=== PATIENT | female | born 1975 | race African-American/Black ===

== ENCOUNTER 2016-11-06 09:19 | Day surgery (SDC) | payer MEDICAID ==
[~2016-11-06 09:19] MED LIST: DIPHENHYDRAMINE HCL 50 MG/ML VIAL ONE; EPINEPHRINE INJ 1 MG/10 ML DISP.SYRIN ONE; FLUMAZENIL INJ 0.5 MG/5 ML VIAL IV ONE; GLUCAGON,HUMAN RECOMB 1 MG INJ ONE; NALOXONE HCL INJ/PF 0.4 MG/1 ML SDV ONE; ONDANSETRON HCL INJ/PF 4 MG/2 ML SDV ONE; PROMETHAZINE HCL INJ 25 MG/1 ML VIAL ONE
[2016-11-06] MEDS: MIDAZOLAM 2 MG/2 ML INJ ONE ×2 (10:16→10:20)
[2016-11-06] MEDS: FENTANYL CITRATE INJ/PF 100 MCG/2 ML AMPUL ONE ×2 (10:18→10:23)
--- NOTE | 2016-11-06 10:29 | Operative Report ---
Operative Report DATE OF SURGERY: 11/06/16 Operative Report: The risks benefits and alternatives of the procedure explained to the patient in detail and informed consent is obtained that GIF Olympus video scope was inserted into the patient's mouth and hypopharynx the esophagus is identified intubated and insufflated the scope was then advanced through the esophagus stomach and duodenum retroflexion maneuver is done the esophagus stomach and first and second portions of the duodenum examined PREOPERATIVE DIAGNOSIS: Nausea and vomiting POSTOPERATIVE DIAGNOSIS: Duodenal ulceration. Gastritis. Hiatal hernia. Gastric mucosal specimens obtained to rule out for Helicobacter pylori OPERATION: EGD with biopsy SURGEON: PETRONA CHARLES ANESTHESIA: Moderate Sedation - 4 mg of Versed, 125 g of fentanyl. Conscious sedation monitoring time 30 minutes. TISSUE REMOVED OR ALTERED: As noted above. COMPLICATIONS: None. ESTIMATED BLOOD LOSS: none. INTRAOPERATIVE FINDINGS: Duodenal ulcers shallow no bleeding noted. Gastritis status post biopsy. Hiatal hernia. Esophagus normal PROCEDURE: Patient tolerated procedure well. No immediate postprocedure complications are noted. Patient is discharged in good condition. Discharge date 11/06/2016. Discharge diet: Regular. Discharge activity: Regular. 2-3 week follow-up to discuss findings. Patient is instructed to call the office or proceed to the emergency room should there be any further problems or questions. We'll await on biopsies.
[2016-11-06 11:41] VITALS: BP 113/78
== END 2016-11-06 11:40 | disposition home or self-care (01) ==
LOC: END 09:19
PROVIDERS: ATTEND Internal Medicine Gastroenterology
PROC: 0DB68ZX Excision of Stomach, Via Natural or Artificial Opening Endoscopic, Diagnostic (ICD-10-PCS; principal; 2016-11-06 10:00)
DX: K44.9 Diaphragmatic hernia without obstruction or gangrene (principal); K26.9 Duodenal ulcer, unspecified as acute or chronic, without hemorrhage or perforation; K31.9 Disease of stomach and duodenum, unspecified; Z79.899 Other long term (current) drug therapy; Z79.51 Long term (current) use of inhaled steroids; Z88.8 Allergy status to other drugs, medicaments and biological substances; Z88.0 Allergy status to penicillin
CPT/HCPCS: 43239; 88342 ×2; 88305 ×2; J2250; J3010; J2405; J0171; J1200; J1610; J2310; J2550; J3490

== ENCOUNTER → 2016-11-12 | Outpatient (CLI) | payer MEDICAID | LOC: WI 14:26 | PROVIDERS: ATTEND Physician Assistant | DX: Z12.31 Encounter for screening mammogram for malignant neoplasm of breast (principal) | CPT/HCPCS: 77067; G0202 ==

== ENCOUNTER → 2016-11-27 | Outpatient (CLI) | payer MEDICAID | LOC: RAD 07:32 | PROVIDERS: ATTEND Physician Assistant | DX: R94.5 Abnormal results of liver function studies (principal) | CPT/HCPCS: 76705 ==

== ENCOUNTER 2016-12-02 08:34 | Day surgery (SDC) | payer MEDICAID ==
[~2016-12-02 08:34] MED LIST changes: -DIPHENHYDRAMINE HCL 50 MG/ML VIAL ONE; -EPINEPHRINE INJ 1 MG/10 ML DISP.SYRIN ONE; -FLUMAZENIL INJ 0.5 MG/5 ML VIAL IV ONE; -GLUCAGON,HUMAN RECOMB 1 MG INJ ONE; -NALOXONE HCL INJ/PF 0.4 MG/1 ML SDV ONE; -ONDANSETRON HCL INJ/PF 4 MG/2 ML SDV ONE; -PROMETHAZINE HCL INJ 25 MG/1 ML VIAL ONE; +PROPOFOL INJ 200 MG/20 ML VIAL IV ONE
[2016-12-02 10:10] VITALS: BP 130/87
--- NOTE | 2016-12-02 11:35 | Operative Report ---
Operative Report DATE OF SURGERY: 12/02/16 Operative Report: The risks, benefits and alternatives of the procedure including risks of bleeding, perforation requiring surgery are explained to the patient detail and informed consent is obtained. Patient is placed in a left, lateral decubital position. Timeout is called. Propofol medications administered. A rectal examination is done which did not reveal any masses, tears or fissures. An Olympus video scope was inserted into the patient's rectum. The scope was then gradually advanced all the way to the cecum. The cecum was identified by the usual anatomical landmarks including the ileocecal valve as well as the appendiceal office. Photodocumentation is obtained. The scope was then sequentially pulled back creative rest segments of the colon including the ascending colon, hepatic flexure, transverse colon, splenic flexure, descending colon and finally into the rectosigmoid portions of the colon. Retroflexion maneuvers performed. PREOPERATIVE DIAGNOSIS: Abdominal pain, change of bowel habits. POSTOPERATIVE DIAGNOSIS: Right-sided mucosal specimens obtained. Internal hemorrhoids. No AVMs, diverticulosis noted OPERATION: Colonoscopy with biopsy SURGEON: PETRONA CHARLES ANESTHESIA: LMAC TISSUE REMOVED OR ALTERED: Right-sided mucosal specimens obtained rule out lymphocytic, microscopic, collagenous colitis. COMPLICATIONS: None. ESTIMATED BLOOD LOSS: none. INTRAOPERATIVE FINDINGS: As noted above. PROCEDURE: Patient tolerated the procedure well. No immediate postprocedure complications are noted. Patient is discharged in good condition. Discharge date 12/02/2016. Discharge diet: Regular. Discharge activity: Regular. 2-3 week follow-up to discuss findings. We'll await on biopsies. Patient is instructed to call the office or proceed to the emergency room should there be any further problems or questions.
== END 2016-12-02 10:00 | disposition home or self-care (01) ==
LOC: END 08:34
PROVIDERS: ATTEND Internal Medicine Gastroenterology
PROC: 0DBF8ZX Excision of Right Large Intestine, Via Natural or Artificial Opening Endoscopic, Diagnostic (ICD-10-PCS; principal; 2016-12-02 12:00)
DX: R10.30 Lower abdominal pain, unspecified (principal); R19.4 Change in bowel habit; K64.8 Other hemorrhoids; I10 Essential (primary) hypertension; J45.909 Unspecified asthma, uncomplicated; E66.9 Obesity, unspecified; Z79.51 Long term (current) use of inhaled steroids; Z79.899 Other long term (current) drug therapy; Z88.0 Allergy status to penicillin; Z88.8 Allergy status to other drugs, medicaments and biological substances; Z68.41 Body mass index [BMI] 40.0-44.9, adult; Z87.891 Personal history of nicotine dependence
CPT/HCPCS: 45380; 88305 ×2; J2704; 810

== ENCOUNTER 2017-05-15 08:21 | Emergency (ER) | payer MEDICAID ==
[2017-05-15 08:30] VITALS: BP 134/93
[2017-05-15] MEDS ORDERED: METHOCARBAMOL 500 MG TABLET PO ONE (08:56)
[2017-05-15] MEDS ORDERED: HYDROCODONE/ACETAMINOPHEN 5-325 MG 6 TAB/DSPK PO PRN (08:56)
--- NOTE | 2017-05-15 08:58 | ER Document Report ---
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 Pt states that she had no pain during, but right after started to have left lower back pain that does not radiate anywhere else. Patient states that she has had muscle spasms in her back before and that is what it feels like. She states that she went home and took some of her Flexeril that she has but it did not help at all. She admits to using warm packs that are not helping. She denies any numbness or tingling, loss of bladder or bowel function or pain radiating down her legs. TRAVEL OUTSIDE OF THE [place] IN LAST 30 DAYS: No - Related Data Allergies/Adverse Reactions: lisinopril [Lisinopril] Allergy (Verified 05/15/17 08:31) Lips swelled Past Medical History - General Information source: Patient - Social History Smoking Status: Unknown if Ever Smoked Family History: Reviewed & Not Pertinent - Past Medical History Cardiac Medical History: Reports: Hx Hypertension Denies: Hx Coronary Artery Disease, Hx Heart Attack Pulmonary Medical History: Reports: Hx Asthma Denies: Hx Bronchitis, Hx COPD, Hx Pneumonia Neurological Medical History: Reports: Hx Migraine. Denies: Hx Cerebrovascular Accident, Hx Seizures Renal/ Medical History: Denies: Hx Peritoneal Dialysis Musculoskeltal Medical History: Denies Hx Arthritis Psychiatric Medical History: Reports: Hx Anxiety Past Surgical History: Reports: Hx Section. Denies: Hx Hysterectomy - Immunizations Immunizations up to date: Yes Hx Diphtheria, Pertussis, Tetanus Vaccination: Yes Review of Systems - Review of Systems Constitutional: No symptoms reported EENT: No symptoms reported Cardiovascular: No symptoms reported Respiratory: No symptoms reported Gastrointestinal: No symptoms reported Genitourinary: No symptoms reported Female Genitourinary: No symptoms reported Musculoskeletal: See HPI Skin: No symptoms reported Hematologic/Lymphatic: No symptoms reported Neurological/Psychological: No symptoms reported Physical Exam - Vital signs Vitals: Temp Pulse BP Pulse Ox 98.2 F 92 134/93 H 99 05/15/17 08:25 05/15/17 08:25 05/15/17 08:25 05/15/17 08:25 - Notes Notes: PHYSICAL EXAMINATION: GENERAL: Uncomfortable appearing, but in no acute distress. HEAD: Atraumatic, normocephalic. EYES: Pupils equal round and reactive to light, extraocular movements intact, sclera anicteric, conjunctiva are normal. NECK: Normal range of motion, supple without lymphadenopathy LUNGS: CTAB and equal. No wheezes rales or rhonchi. HEART: Regular rate and rhythm without murmurs ABDOMEN: Soft, no tenderness. No guarding, no rebound BACK: left lumbar tender ness, no vertebral tenderness, normal ROM GI/: no CVA tenderness EXTREMITIES: Normal range of motion, no pitting edema. No cyanosis. NEUROLOGICAL: Cranial nerves grossly intact. Normal sensory/motor exams. PSYCH: Normal mood, normal affect. SKIN: Warm, Dry, normal turgor, no rashes or lesions noted Course - Re-evaluation Re-evalutation: 05/15/17 11:23 Patient is nontender midline, I do not see the reason for x-rays today. Patient was given pain medication and muscle relaxer here and a muscle relaxer prescription other than Flexeril. - Vital Signs Vital signs: Temp Pulse Resp BP Pulse Ox 98.2 F 92 134/93 H 99 05/15/17 08:25 05/15/17 08:25 05/15/17 08:25 05/15/17 08:25 Discharge - Discharge Clinical Impression: Spasm of back muscles Condition: Stable Disposition: HOME, SELF-CARE Instructions: Warm Packs ([facility]) Additional Instructions: Return immediately for any new or worsening symptoms. Follow up with primary care provider, call tomorrow to make followup appointment. Prescriptions: Methocarbamol [Robaxin 500 mg Tablet] 1,000 mg PO BID PRN #40 tablet PRN Reason: Forms: Return to Work Referrals: ROSALVA GAFFNEY MD [Primary Care Provider] - Follow up as needed
== END 2017-05-15 09:25 | disposition home or self-care (01) ==
LOC: ER 08:21
DX: M62.830 Muscle spasm of back (principal); I10 Essential (primary) hypertension
CPT/HCPCS: 99283; J3490

== ENCOUNTER 2017-05-22 11:00 | Emergency (ER) | payer SELFPAY ==
[2017-05-22] MEDS ORDERED: ACETAMINOPHEN 325 MG TABLET PO ONE (12:01)
[2017-05-22] MEDS ORDERED: LIDOCAINE 5% (700 MG) TRANSDERMAL ADH..PATCH TP ONE (12:01)
--- NOTE | 2017-05-22 12:07 | ER Document Report ---
ED Neck/Back Problem - General Chief Complaint: Back Pain Stated Complaint: BACK PAIN Time Seen by Provider: 05/22/17 11:48 Mode of Arrival: Ambulatory Information source: Patient Notes: 41-year-old female presents to ED for complaint of muscle spasm to her left back since . She states she was seen here for the same but is not getting any better. Stated it started yesterday morning and she went to work and it got worse. 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 She states she is on Flexeril for the pain she is not able to take ibuprofen due to her blood pressure. TRAVEL OUTSIDE OF THE [place] IN LAST 30 DAYS: No - HPI Patient complains to provider of: Lower back Onset: Last week Onset: Chronic Timing: Still present Quality of pain: Sharp Severity: Moderate Pain Level: 3 Context: Bending Recent injury: No Associated symptoms: Like prior neck/back pain, Lower back pain. denies: Constipation, Fever, Incontinence, Motor loss, Numbness/tingling, Radiation to leg, Sensory loss, Sweaty, Unable to urinate Relieved by: Nothing Similar symptoms previously: Yes Recently seen / treated by doctor: Yes - Related Data Allergies/Adverse Reactions: lisinopril [Lisinopril] Allergy (Verified 05/22/17 11:03) Lips swelled Past Medical History - General Information source: Patient - Social History Smoking Status: Former Smoker Cigarette use (# per day): No Chew tobacco use (# tins/day): No Smoking Education Provided: No Frequency of alcohol use: None Drug Abuse: None Lives with: Family Family History: Reviewed & Not Pertinent Patient has suicidal ideation: No Patient has homicidal ideation: No - Past Medical History Cardiac Medical History: Reports: Hx Hypertension Pulmonary Medical History: Reports: Hx Asthma EENT Medical History: Reports: None Neurological Medical History: Reports: Hx Migraine Endocrine Medical History: Reports: None Renal/ Medical History: Reports: None Malignancy Medical History: Reports: None GI Medical History: Reports: None Musculoskeltal Medical History: Reports None Skin Medical History: Reports None Psychiatric Medical History: Reports: Hx Anxiety Traumatic Medical History: Reports: None Infectious Medical History: Reports: None Past Surgical History: Reports: Hx Section - Immunizations Immunizations up to date: Yes Hx Diphtheria, Pertussis, Tetanus Vaccination: Yes Review of Systems - Review of Systems Constitutional: No symptoms reported EENT: No symptoms reported Cardiovascular: No symptoms reported Respiratory: No symptoms reported Gastrointestinal: No symptoms reported Genitourinary: No symptoms reported Female Genitourinary: No symptoms reported Musculoskeletal: Back pain, Muscle pain, Muscle stiffness Skin: No symptoms reported Hematologic/Lymphatic: No symptoms reported Neurological/Psychological: No symptoms reported -: Yes All other systems reviewed and negative Physical Exam - Vital signs Vitals: Temp Pulse Resp BP Pulse Ox 98.6 F 85 14 141/99 H 100 05/22/17 11:04 05/22/17 11:04 05/22/17 11:04 05/22/17 11:04 05/22/17 11:04 Interpretation: Normal - General General appearance: Appears well, Alert - HEENT Head: Normocephalic, Atraumatic Eyes: Normal Pupils: PERRL - Respiratory Respiratory status: No respiratory distress Chest status: Nontender Breath sounds: Normal Chest palpation: Normal - Cardiovascular Rhythm: Regular Heart sounds: Normal auscultation Murmur: No - Abdominal Inspection: Normal Distension: No distension Bowel sounds: Normal Tenderness: Nontender Organomegaly: No organomegaly - Back Back: Normal, Tender - Extremities General upper extremity: Normal inspection, Nontender, Normal color, Normal ROM , Normal temperature General lower extremity: Normal inspection, Nontender, Normal color, Normal ROM , Normal temperature, Normal weight bearing. 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 She was also sent home with a prescription for Flexeril. Patient instructed on use of ice packs warm packs and exercises to decrease her back pain. Patient did not have any signs or symptoms of cauda equina, saddle anesthesia, any loss of control of bowel bladder, or loss of muscle control. - Vital Signs Vital signs: Temp Pulse Resp BP Pulse Ox 98.6 F 74 14 130/88 H 100 05/22/17 11:04 05/22/17 13:12 05/22/17 11:04 05/22/17 13:12 05/22/17 13:12 - Laboratory Laboratory results interpreted by me: 05/22/17 12:05 Urine Blood SMALL H Discharge - Discharge Clinical Impression: Low back pain Qualifiers: Chronicity: chronic Back pain laterality: left Sciatica presence: without sciatica Qualified Code(s): M54.5 - Low back pain Condition: Stable Disposition: HOME, SELF-CARE Instructions: Family Physicians / Practices Additional Instructions: LOW BACK PAIN: Three out of every four people will have an episode of disabling back pain during their lifetime. Most commonly the pain is due to straining of the muscles and ligaments in the low back. Usual treatment includes: (1) Rest on a firm surface. Avoid lying on your stomach. (2) Ice pack the painful area. After a few days, gentle heat may be used intermittently to relax the area, or ice packs can be continued. (3) Medication may be needed -- muscle relaxers and antiinflammatory medicines are commonly used. (4) As the back improves, exercises are prescribed to strengthen the back and abdominal muscles. Your doctor will advise you on the proper care for your back at each stage in your recovery. You may be better in a few days -- or healing may take several weeks. If new symptoms of a "herniated disc" (radiation of pain, numbness, or tingling down the back of the leg or weakness in the leg) occur, you should be re-examined. Further testing may be necessary. MUSCLE RELAXERS: Muscle relaxing medications are usually prescribed for acute muscle spasm or injury to the neck and back. They are often combined with antiinflammatory pain medication for increased relief. You may stop the muscle relaxer when the pain and stiffness have improved. Start the medication again if spasms recur. Muscle relaxers may cause drowsiness, especially with the first dose. Do not operate machinery or drive while under the effects of the medication. Most muscle relaxers last up to 24 hours. Do not combine the medication with alcohol. ICE PACKS: Apply ice packs frequently against the painful area. Many different schedules are recommended, such as "20 minutes on, 20 minutes off" or "one hour ice, two hours rest." If you need to work, you may need to go longer between ice treatments. You should plan to have the area ice packed AT LEAST one fourth of the time. The ice should be applied over the wrap, tape, or splint, or over a layer of cloth -- not directly against the skin. Some ice bags have a built-in cloth and can be put directly on the skin. WARM PACKS: After approximately two days, apply gentle heat (such as a heating pad or hot water bottle) for about 20 to 30 minutes about every two hours -- at least four times daily. Warmth and elevation will help you make a more rapid recovery , and will ease the pain considerably. Do not use HOT heat, and never apply heat for longer than 30 minutes. The continuous heat can invisibly damage skin and muscles -- even when no burn is seen on the surface. Damaged muscles can make you MORE sore. Stretching Exercises for the Back The physician has recommended that you begin stretching exercises for your back. These are often used even while the back is painful. However, you should notify the physician if the activities seem to increase your pain. PELVIC TILT: Lie flat on your back with knees bent. Tighten your stomach and buttock muscles so it flattens your lower back against the floor. Hold 10 seconds. Repeat 10 times, twice daily. KNEE RAISE: Lying on the back with knees bent, raise one knee to your chest, then the other. Hold both knees against the chest 10 seconds, then lower one knee at a time. Repeat 10 times, twice daily. PARTIAL TRUNK RAISE: Lie face down, arms at your sides. Keeping your waist on the floor, use your arms raise your chest up. Support yourself on your elbows for 30 seconds. Repeat twice daily, increasing the time to two minutes as you recover. Lidocaine will help topically and you can get this and Aspercreme over-the- counter. Also try stretching exercises for your back and for your body. Try walking slowly increased from a half a mile 3 times a week to up to a couple miles 3 or 4 times a week. FOLLOW-UP CARE: If you have been referred to a physician for follow-up care, call the physician s office for an appointment as you were instructed or within the next two days. If you experience worsening or a significant change in your symptoms, notify the physician immediately or return to the Emergency Department at any time for re-evaluation. Prescriptions: Cyclobenzaprine HCl [Flexeril 10 mg Tablet] 10 mg PO TIDP PRN #15 tab PRN Reason: Forms: Elevated Blood Pressure, Return to Work Referrals: ROSALVA GAFFNEY MD [Primary Care Provider] - Follow up as needed
[2017-05-22 12:28] LABS: APPEARANCE,URINE CLEAR; BILIRUBIN,URINE NEGATIVE (NEGATIVE); GLUCOSE, URINE NEGATIVE (NEGATIVE); KETONES,URINE NEGATIVE (NEGATIVE); LEUKOCYTE ESTERASE,URINE NEGATIVE (NEGATIVE); NITRITE,URINE NEGATIVE (NEGATIVE); PROTEIN,URINE NEGATIVE (NEGATIVE); URINE SPECIFIC GRAVITY 1.009; UROBILINOGEN,URINE NEGATIVE mg/dL (<2.0)
[2017-05-22 13:14] VITALS: BP 130/88
== END 2017-05-22 13:14 | disposition home or self-care (01) ==
LOC: ER 11:00
DX: G89.29 Other chronic pain (principal); M54.5 Low back pain; M62.830 Muscle spasm of back; I10 Essential (primary) hypertension; J45.909 Unspecified asthma, uncomplicated; Z79.899 Other long term (current) drug therapy; Z87.891 Personal history of nicotine dependence
CPT/HCPCS: 81001; 81025; 87086; 99283

== ENCOUNTER → 2017-07-14 | Outpatient (CLI) | payer OTHER ==
--- NOTE | 2017-07-14 09:06 | WOMENS IMAGING REPORT ---
EXAM DESCRIPTION: U/S ABDOMEN LIMITED COMPLETED DATE/TIME: 07/14/2017 7:35 am REASON FOR STUDY: RIGHT UPPER QUADRANT PAIN R10.11 RIGHT UPPER QUADRANT PAIN COMPARISON: 11/27/2016. TECHNIQUE: Dynamic and static grayscale images acquired of the abdomen and recorded on PACS. Isabelo tiffanie selected color Doppler and spectral images recorded. LIMITATIONS: None. FINDINGS: PANCREAS: No masses. Visualized pancreatic duct normal caliber. LIVER: No masses. Echotexture normal. LIVER VASCULATURE: Normal directional flow of the main portal vein and hepatic veins. GALLBLADDER: No stones. Normal wall thickness. No pericholecystic fluid. ULTRASOUND-DETECTED VALENCIA'S SIGN: Negative. INTRAHEPATIC DUCTS AND COMMON DUCT: CBD and intrahepatic ducts normal caliber. No filling defects. INFERIOR VENA CAVA: Normal flow. AORTA: No aneurysm. RIGHT KIDNEY:Normal size. Normal echogenicity. No solid or suspicious masses. No hydronephrosis. No c alcifications. LEFT KIDNEY: Normal size. Normal echogenicity. No solid or suspicious masses. No hydronephrosis. No calcifications. SPLEEN: Normal size. No solid masses. PERITONEAL AND PLEURAL SPACES: No ascites or effusions. OTHER: No other significant finding. IMPRESSION: NORMAL ABDOMINAL ULTRASOUND. TECHNICAL DOCUMENTATION: JOB ID: [id number] [employer]- All Rights Reserved
== END ==
LOC: WI 07:06
PROVIDERS: ATTEND Physician Assistant
DX: R10.11 Right upper quadrant pain (principal)
CPT/HCPCS: 76705

== ENCOUNTER 2017-07-16 08:58 | Emergency (ER) | payer OTHER ==
--- NOTE | 2017-07-16 09:25 | ER Document Report ---
ED Medical Screen (RME) - General Chief Complaint: Abdominal Pain Stated Complaint: ABDOMINAL PAIN Time Seen by Provider: 07/16/17 09:19 Notes: This 41-year-old female patient comes emergency room complaining of right upper quadrant pain has been going on for several days. She had a normal gallbladder ultrasound done 2 days ago on 07/14/2017. She has an IUD therefore does not have periods. She has had endoscopy and colonoscopy with no findings in late October and mid November 2016. She did have a negative gallbladder ultrasound in November 2016. She reportedly had elevated liver enzymes at that time which she was told had return to normal a few days ago. The pain happens at any time of day or evening. Pain is not related to eating. I have greeted and performed a rapid initial assessment of this patient. A comprehensive ED assessment and evaluation of the patient, analysis of test results and completion of the medical decision making process will be conducted by additional ED providers. TRAVEL OUTSIDE OF THE [place] IN LAST 30 DAYS: No - Related Data Allergies/Adverse Reactions: lisinopril [Lisinopril] Allergy (Verified 07/16/17 09:02) Lips swelled Past Medical History - Social History Chew tobacco use (# tins/day): No Frequency of alcohol use: None Drug Abuse: None - Past Medical History Cardiac Medical History: Reports: Hx Hypertension Denies: Hx Heart Attack Pulmonary Medical History: Reports: Hx Asthma Denies: Hx Bronchitis, Hx COPD, Hx Pneumonia Neurological Medical History: Reports: Hx Migraine. Denies: Hx Seizures Renal/ Medical History: Denies: Hx Peritoneal Dialysis Musculoskeltal Medical History: Denies Hx Arthritis Psychiatric Medical History: Reports: Hx Anxiety Past Surgical History: Reports: Hx Section. Denies: Hx Hysterectomy - Immunizations Immunizations up to date: Yes Hx Diphtheria, Pertussis, Tetanus Vaccination: Yes Physical Exam - Vital signs Vitals: Temp Pulse Resp BP Pulse Ox 99.1 F 92 18 101/74 100 07/16/17 09:02 07/16/17 09:02 07/16/17 09:02 07/16/17 09:02 07/16/17 09:02 Course - Vital Signs Vital signs: Temp Pulse Resp BP Pulse Ox 99.1 F 92 18 101/74 100 07/16/17 09:02 07/16/17 09:02 07/16/17 09:02 07/16/17 09:02 07/16/17 09:02
[2017-07-16 09:51] LABS: ABSOLUTE BASOPHILS # (AUTO) 0.2 10^3/uL (0.0-0.2); ABSOLUTE EOSINOPHILS # (AUTO) 0.5 10^3/uL (0.0-0.6); ABSOLUTE LYMPHOCYTES (AUTO) 1.1 10^3/uL (0.5-4.7); ABSOLUTE MONOCYTES (AUTO) 0.5 10^3/uL (0.1-1.4); ABSOLUTE NEUT (AUTO) 5.7 10^3/uL (1.7-8.2); BASOPHILS % (AUTO) 2.1 % (0-2); EOSINOPHILS % (AUTO) 5.7 % (0-6); HEMOGLOBIN 12.4 g/dL (12.0-15.5); HGB HCT DIFFERENCE 0.2; LYMPHOCYTES % (AUTO) 14.1 % (13-45); MEAN CORPUSCULAR HEMOGLOBIN 28.8 pg (27.0-33.4); MEAN CORPUSCULAR HGB CONC 33.5 g/dL (32.0-36.0); MEAN CORPUSCULAR VOLUME 86 fl (80-97); MONOCYTES % (AUTO) 6.3 % (3-13); RED CELL DISTRIBUTION WIDTH 14.2 % (11.5-14.0); SEGMENTED NEUTROPHILS % (AUTO) 71.8 % (42-78); WHITE BLOOD COUNT 7.9 10^3/uL (4.0-10.5)
[2017-07-16] MEDS ORDERED: FAMOTIDINE 20 MG TABLET PO ONE (09:56)
[2017-07-16] MEDS ORDERED: MAG HYDROX/AL HYDROX/SIMETH SUSP 30 ML UDCUP PO PRN (09:56)
--- NOTE | 2017-07-16 09:58 | ER Document Report ---
ED General - General Chief Complaint: Abdominal Pain Stated Complaint: ABDOMINAL PAIN Time Seen by Provider: 07/16/17 09:19 Notes: 41-year-old female presents with right upper quadrant epigastric pain 10 days duration initially intermittent and constant worse after meals nonradiating and associated with nausea. This is happened to her several times and she has been to the ED a few times for this. She had a normal right upper quadrant ultrasound in November. She is being worked up as an outpatient and had an ultrasound done 2 days ago, the results of which I reviewed and are also normal. She was seen in triage and a workup was ordered. She denies urinary symptoms weight loss diarrhea foreign travel or previous abdominal surgeries. TRAVEL OUTSIDE OF THE [place] IN LAST 30 DAYS: No - Related Data Allergies/Adverse Reactions: lisinopril [Lisinopril] Allergy (Verified 07/16/17 09:02) Lips swelled Home Medications: Current Home Medications Albuterol Sulfate [Proair HFA] 2 inhaler PO Q4H PRN 07/16/17 [History] Past Medical History - Social History Smoking Status: Former Smoker Chew tobacco use (# tins/day): No Frequency of alcohol use: None Drug Abuse: None Family History: Reviewed & Not Pertinent Patient has suicidal ideation: No Patient has homicidal ideation: No - Past Medical History Cardiac Medical History: Reports: Hx Hypertension Denies: Hx Heart Attack Pulmonary Medical History: Reports: Hx Asthma Denies: Hx Bronchitis, Hx COPD, Hx Pneumonia Neurological Medical History: Reports: Hx Migraine. Denies: Hx Seizures Renal/ Medical History: Denies: Hx Peritoneal Dialysis Musculoskeltal Medical History: Denies Hx Arthritis Psychiatric Medical History: Reports: Hx Anxiety Past Surgical History: Reports: Hx Section. Denies: Hx Hysterectomy - Immunizations Immunizations up to date: Yes Hx Diphtheria, Pertussis, Tetanus Vaccination: Yes Review of Systems - Review of Systems Notes: REVIEW OF SYSTEMS GEN: Denies fever, chills, weight loss ENT: Denies sore throat, nasal discharge, ear pain EYES: Denies blurry vision, eye pain, discharge CV: Denies chest pain, palpitations, edema RESP: Denies cough, shortness of breath, wheezing GI: Abdominal pain nausea MSK: Denies joint pain/swelling, edema, SKIN: Denies rash, skin lesions LYMPH: Denies swollen glands/lymph nodes NEURO: Denies headache, focal weakness or numbness, dizziness PSYCH: Denies depression, suicidal or homicidal ideation PHYSICAL EXAMINATION General: No acute distress, well-nourished Head: Atraumatic, normocephalic ENT: Mouth normal, oropharynx moist, no exudates or tonsillar enlargement Eyes: Conjunctiva normal, pupils equal, lids normal Neck: No JVD, supple, no guarding CVS: Normal rate, regular rhythm, no murmurs Resp: No resp distress, equal and normal breath sounds bilaterally GI: Nondistended, soft, epigastric and right upper quadrant tenderness to palpation, negative Gimenez sign, no rebound or guarding Ext: No deformities, no edema, normal range of motion in upper and lower ext Back: No CVA or midline TTP Skin: No rash, warm Lymphatic: No lymphadeopathy noted Neuro: Awake, alert. Face symmetric. GCS 15. Physical Exam - Vital signs Vitals: Temp Pulse Resp BP Pulse Ox 99.1 F 92 18 101/74 100 07/16/17 09:02 07/16/17 09:02 07/16/17 09:02 07/16/17 09:02 07/16/17 09:02 Course - Re-evaluation Re-evalutation: 07/16/17 09:57 This is an obese 41-year-old female with recurrent abdominal pain and tenderness , normal vital signs, negative outpatient ultrasound for gallstones 2 days ago. This is likely gastritis but she has had elevated LFTs in the past of those will be checked today. I do not see a need to repeat her ultrasound and we will treat her conservatively as gastritis with Pepcid and Maalox. 07/16/17 10:37 Labs negative. Ultrasound read negative from yesterday. Will discharge home to follow-up with surgery versus GI. I have discussed with the patient there likely diagnosis, aftercare plan, follow -up plans and my usual and customary return precautions. They verbalized understanding of this. 07/16/17 10:47 Patient reassessed and is feeling good. She had a recent endoscopy and is supposed to follow-up with surgery. I will treat her for gastritis. Her labs are normal today. I have discussed with the patient there likely diagnosis, aftercare plan, follow-up plans and my usual and customary return precautions. They verbalized understanding of this. - Vital Signs Vital signs: Temp Pulse Resp BP Pulse Ox 99.1 F 92 18 101/74 100 07/16/17 09:02 07/16/17 09:02 07/16/17 09:02 07/16/17 09:02 07/16/17 09:02 - Laboratory Result Diagrams: 07/16/17 09:40 07/16/17 09:40 Laboratory results interpreted by me: 07/16/17 07/16/17 09:40 09:40 RDW 14.2 H Basophils % 2.1 H Carbon Dioxide 32 H Creatinine 1.59 H Est GFR ( Amer) 44 L Est GFR (Non-Af Amer) 36 L Direct Bilirubin 0.5 H AST 70 H Alkaline Phosphatase 141 H Albumin 3.3 L Discharge - Discharge Clinical Impression: Upper abdominal pain Condition: Good Disposition: HOME, SELF-CARE Instructions: Abdominal Pain ([facility]) Additional Instructions: We did not find any acute problems with her abdomen today, your ultrasound was done yesterday is actually normal. Please take the medicine I am prescribing and adjust her diet to decrease acid, fat and grease. Prescriptions: Famotidine [Pepcid 20 mg Tablet] 20 mg PO DAILY #12 tablet
[2017-07-16 10:08] LABS: ALANINE AMINOTRANSFERASE 52 U/L (9-52); ALBUMIN 3.3 g/dL (3.5-5.0); ALKALINE PHOSPHATASE 141 U/L (38-126); ASPARTATE AMINO TRANSFERASE 70 U/L (14-36); BILIRUBIN,DIRECT 0.5 mg/dL (0.0-0.4); BILIRUBIN,TOTAL 0.6 mg/dL (0.2-1.3); BLOOD UREA NITROGEN 12 mg/dL (7-20); CALCIUM 8.9 mg/dL (8.4-10.2); CARBON DIOXIDE 32 mmol/L (22-30); CREATININE RESULT 1.59 mg/dL (0.52-1.25); GLUCOSE 85 mg/dL (75-110); LIPASE 38.9 U/L (23-300); POTASSIUM 4.3 mmol/L (3.6-5.0); SODIUM 141.6 mmol/L (137-145); TOTAL PROTEIN 7.2 g/dL (6.3-8.2)
[2017-07-16 10:12] LABS: ANION GAP 7 (5-19); CHLORIDE 103 mmol/L (98-107)
[2017-07-16 11:07] LABS: APPEARANCE,URINE TURBID; BILIRUBIN,URINE SMALL (NEGATIVE); GLUCOSE, URINE 50 mg/dL (NEGATIVE); KETONES,URINE NEGATIVE (NEGATIVE); LEUKOCYTE ESTERASE,URINE NEGATIVE (NEGATIVE); NITRITE,URINE NEGATIVE (NEGATIVE); PROTEIN,URINE >=500 mg/dL (NEGATIVE); URINE SPECIFIC GRAVITY 1.054; UROBILINOGEN,URINE NEGATIVE mg/dL (<2.0)
[2017-07-16] MEDS ORDERED: ONDANSETRON 4 MG TAB.RAPDIS PO ONE (11:11)
[2017-07-16 11:13] VITALS: BP 135/99
[2017-07-16 11:22] LABS: BACTERIA,URINE 2+ /HPF
== END 2017-07-16 12:00 | disposition home or self-care (01) ==
LOC: ER 08:58
DX: R10.10 Upper abdominal pain, unspecified (principal); R10.11 Right upper quadrant pain; R10.13 Epigastric pain; R11.0 Nausea; Z87.891 Personal history of nicotine dependence; Z79.899 Other long term (current) drug therapy
CPT/HCPCS: 99284; 36415; 83690; 85025; 80053; 81001; S0119

== ENCOUNTER 2018-09-09 16:07 | Emergency (ER) | payer MEDICAID ==
[2018-09-09 16:16] VITALS: BP 143/92
[2018-09-09] MEDS ORDERED: DEXAMETHASONE SOD PHOS INJ 10 MG/1 ML VIAL IM ONE (16:53)
--- NOTE | 2018-09-09 16:54 | ER Document Report ---
Addendum entered and electronically signed by MARILYN GALVIN PA-C 09/09/18 17:00: Discharge - Discharge Clinical Impression: Acute URI Condition: Stable Disposition: HOME, SELF-CARE Additional Instructions: Maintain adequate fluid intake Take meds as directed tylenol/ibuprofen as needed over the counter cold medication as needed for symptoms Humidified air may help Wash your hands regularly Wear a mask when coughing F/u: with your PCM in 3-5 days for a recheck Return to the ED with any fever, worsening pain, chest pain, palpitations, syncope, worsening TERRY, neck pain/stiffness, shortness of breath, wheezing, drooling, trouble swallowing/breathing, abdominal pain, n/v/d, rash, or worsening/concerning symptoms otherwise. Prescriptions: Ondansetron [Zofran Odt 4 mg Tablet] 1 - 2 tab PO Q4H PRN #15 tab.rapdis PRN Reason: For Nausea/Vomiting Oseltamivir Phosphate [Tamiflu 75 mg Capsule] 75 mg PO BID #10 capsule Forms: Elevated Blood Pressure Referrals: [facility] [Provider Group] - Follow up as needed Original Note: HPI - HPI Time Seen by Provider: 09/09/18 16:39 Pain Level: 3 Notes: Patient is a 42-year-old female who presents the emergency department complaining of nasal congestion/discharge, dry nonproductive cough, fever, body ache 1d. Patient states that she is still eating and drinking without difficulties, but does have a decreased p.o. intake. She is still urinating normally having normal bowel movements. Patient has been using some [id number] meds for symptoms. She denies any significant past medical history including cardiopulmonary history and immunocompromised conditions aside from asthma. Patient denies any smoking or IV drug use. Patient requesting work note. Denies any current headache, neck pain, sore throat, chest pain, palpitations, syncope, shortness of breath, wheeze, dyspnea, abdominal pain, nausea/vomiting/diarrhea, urinary retention, dysuria, hematuria, or rash. - ROS Systems Reviewed and Negative: Yes All other systems reviewed and negative - REPRODUCTIVE Reproductive: DENIES: : Past Medical History - Social History Smoking Status: Never Smoker Family History: Reviewed & Not Pertinent - Past Medical History Cardiac Medical History: Reports: Hx Hypertension Denies: Hx Heart Attack Pulmonary Medical History: Reports: Hx Asthma Denies: Hx Bronchitis, Hx COPD, Hx Pneumonia Neurological Medical History: Reports: Hx Migraine. Denies: Hx Seizures Renal/ Medical History: Denies: Hx Peritoneal Dialysis Musculoskeletal Medical History: Denies Hx Arthritis Psychiatric Medical History: Reports: Hx Anxiety Past Surgical History: Reports: Hx Section. Denies: Hx Hysterectomy - Immunizations Immunizations up to date: Yes Hx Diphtheria, Pertussis, Tetanus Vaccination: Yes Vertical Provider Document - CONSTITUTIONAL Agree With Documented VS: Yes Notes: PHYSICAL EXAMINATION: GENERAL: Well-appearing, well-nourished and in no acute distress. A&Ox4. Answers questions appropriately. Moves comfortably w/o notable distress HEAD: Atraumatic, normocephalic. EYES: Pupils equal round and reactive to light, extraocular movements intact, sclera anicteric, conjunctiva are normal. ENT: EAC clear b/l. TM's intact b/l without erythema, fluid, or perforation. Nares patent and with clear discharge. oropharynx no erythema without exudates. No tonsilar hypertrophy without erythema or exudate. No palatine shift. Uvula midline. No tongue protrusion. No drooling, hoarseness, or airway compromise. Moist mucous membranes. No sinus tenderness. NECK: Normal range of motion, supple without lymphadenopathy. No rigidity/meningismus. LUNGS: Breath sounds clear to auscultation bilaterally and equal. No wheezes rales or rhonchi. No retractions HEART: Regular rate and rhythm without murmurs, rubs, gallops. ABDOMEN: Soft, nontender, nondistended abdomen. No guarding, no rebound. No masses appreciated. Normal bowel sounds present. No CVA tenderness bilaterally. No hepatosplenomegaly. NEUROLOGICAL: Normal speech, normal gait. Normal sensory, motor exams PSYCH: Normal mood, normal affect. SKIN: Warm, Dry, normal turgor, no rashes or lesions noted. - INFECTION CONTROL TRAVEL OUTSIDE OF THE [place] IN LAST 30 DAYS: No Course - Re-evaluation Re-evalutation: 09/09/18 16:52 Patient is an afebrile, well-hydrated, 42-year-old female who presents to the ED with acute URI, suspect influenza. Vitals are acceptable. PE is otherwise unremarkable. No labs or imaging warranted at this time based on H&P. Patient has no significant cardiopulmonary or immunocompromised medical conditions aside from asthma. Patient's lungs are clear to auscultation bilaterally without tachycardia, hypoxia, or tachypnea. Patient is tolerating p.o. without any difficulties. Thoroughly reviewed the risks, benefits, potential side effects, estimated cost without insurance with patient. After thorough review, patient requested Tamiflu at this time. Low suspicion for any meningitis, sepsis, peritonsillar/pharyngeal abscess, respiratory compromise, severe dehydration, or other emergent systemic condition at this time. Patient is aware this condition can change from initial presentation and she needs to monitor symptoms closely. Decadron given IM to help with asthma as pt does not want more pills and has been using her inhaler requesting steroid. Conservative measures otherwise for symptoms. Recheck with your PCM in 3-5 days. Return to the ED with any worsening/concerning symptoms otherwise as reviewed in discharge. Patient is in agreement. - Vital Signs Vital signs: Temp Pulse Resp BP Pulse Ox 99.2 F 106 H 24 H 143/92 H 97 09/09/18 16:14 09/09/18 16:14 09/09/18 16:14 09/09/18 16:14 09/09/18 16:14 Discharge - Discharge Clinical Impression: Acute URI Condition: Stable Disposition: HOME, SELF-CARE Additional Instructions: Maintain adequate fluid intake Take meds as directed tylenol/ibuprofen as needed over the counter cold medication as needed for symptoms Humidified air may help Wash your hands regularly Wear a mask when coughing F/u: with your PCM in 3-5 days for a recheck Return to the ED with any fever, worsening pain, chest pain, palpitations, syncope, worsening TERRY, neck pain/stiffness, shortness of breath, wheezing, drooling, trouble swallowing/breathing, abdominal pain, n/v/d, rash, or worsening/concerning symptoms otherwise. Prescriptions: Oseltamivir Phosphate [Tamiflu 75 mg Capsule] 75 mg PO BID #10 capsule Forms: Elevated Blood Pressure Referrals: [facility] [Provider Group] - Follow up as needed
== END 2018-09-09 17:12 | disposition home or self-care (01) ==
LOC: ER 16:07
DX: J06.9 Acute upper respiratory infection, unspecified (principal); R09.81 Nasal congestion; I10 Essential (primary) hypertension
CPT/HCPCS: 99283; 96372; J1100

== ENCOUNTER → 2019-02-19 | Outpatient (CLI) | payer MEDICAID ==
--- NOTE | 2019-02-19 14:49 | WOMENS IMAGING REPORT ---
EXAM DESCRIPTION: 3D SCREENING MAMMO BILAT COMPLETED DATE/TIME: 02/19/2019 2:11 pm REASON FOR STUDY: Z12.31 ROUTINE 3D BILATERAL SCREENING Z12.31 ENCNTR SCREEN MAMMOGRAM FOR MALIGNAN T NEOPLASM OF SIMONE COMPARISON: 2015, 2016 EXAM PARAMETERS: Views: Standard craniocaudal and mediolateral oblique views of each breast recorded using digital acquisition and breast tomosynthesis. Read with the assistance of CAD. .[facility] - [employer] Lead Version 9.2 LIMITATIONS: None. FINDINGS: No suspicious masses, suspicious calcifications or architectural distortion. No areas of c oncern. IMPRESSION: NEGATIVE MAMMOGRAM. BIRADS 1. BREAST DENSITY: b. There are scattered areas of fibroglandular density. BIRAD: ASSESSMENT: 1 NEGATIVE RECOMMENDATION: ROUTINE SCREENING COMMENT: The patient has been notified of the results by letter per MQSA requirements. Additional no tification policies are in place for contacting patient with suspicious or incomplete findings. Quality ID #[id number]: The [employer] recommends an annual screening mammogram for women aged 40 years or over. This facility utilizes a reminder system to ensure that all patients receive reminder letters, and/or direct phone calls for appointments. This includes reminders for routine scr eening mammograms, diagnostic mammograms, or other Breast Imaging Interventions when appropriate. Th is patient will be placed in the appropriate reminder system. TECHNICAL DOCUMENTATION: FINDING NUMBER: (1) ASSESSMENT: (1) JOB ID: [id number] [employer]- All Rights Reserved Reading location - IP/workstation name: [email or web address]
== END ==
LOC: WI 13:55
PROVIDERS: ATTEND Physician Assistant
DX: Z12.31 Encounter for screening mammogram for malignant neoplasm of breast (principal)
CPT/HCPCS: 77063; 77067